=== PATIENT | female | born 1940 | race African-American/Black ===

== ENCOUNTER 2019-06-27 02:57 | Emergency (ER) | payer MEDICARE ==
[~2019-06-27] VITALS: Ht 167.6 cm; Wt 75.0 kg
[2019-06-27] MEDS ORDERED: EPINEPHRINE 0.1MG/ML (1:10,000) 10ML SYR ONE ×2 (03:00→03:22)
[2019-06-27] MEDS ORDERED: CALCIUM CHLORIDE 1GM/10ML SYR IV ONE (03:00)
[2019-06-27] MEDS ORDERED: SODIUM BICARBONATE 8.4% 1 MEQ/ML 50ML SYR IV ONE ×2 (03:00→03:25)
[2019-06-27 03:06] VITALS: BP 0/0
== END 2019-06-27 03:27 | disposition expired ==
LOC: ER 02:57
DX: I46.9 Cardiac arrest, cause unspecified (principal); E78.00 Pure hypercholesterolemia, unspecified; I10 Essential (primary) hypertension
CPT/HCPCS: 31500; 82962; 92950; 99291; J3490